=== PATIENT | female | born 1990 | race Caucasian/White ===

== ENCOUNTER 2017-12-25 17:13 | Emergency (ER) | payer OTHER, SELFPAY ==
[2017-12-25] MEDS ORDERED: Acetaminophen 500 MG TAB ONE (17:52)
[2017-12-25] MEDS ORDERED: Ibuprofen 200 MG TAB ONE (18:51)
== END 2017-12-25 19:40 | disposition home or self-care (01) ==
LOC: NAV ERS 17:13
DX: J11.1 Influenza due to unidentified influenza virus with other respiratory manifestations (principal); F17.210 Nicotine dependence, cigarettes, uncomplicated; Z71.6 Tobacco abuse counseling
CPT/HCPCS: 99406